=== PATIENT | male | born 1970 | race Hispanic/Latino ===

== ENCOUNTER 2016-07-07 18:51 | Emergency (ER) | payer OTHER ==
[~2016-07-07 18:51] MED LIST: FLEXERIL10 MG PO; FLONASE120 SPRAY/ NAS; HYDROCODONE/ACE1 TA1 PO; MEDROL DOSEPAK1 PAC PO; TESSALON PERLE100 MG PO; ZITHROMAX Z-PA250 M1 PO; ZOFRAN ODT4 MG PO
[2016-07-07 19:02] VITALS: BP 129/76
[2016-07-07] MEDS ORDERED: IBUPROFEN800 M1 PO (19:53)
[2016-07-07] MEDS ORDERED: CYCLOBENZAPRINE10 M1 PO (19:53)
[2016-07-07] MEDS ORDERED: MEDROL4 M2 PO (19:53)
--- NOTE | 2016-07-07 19:57 | ED NECK/BACK PAIN COMPLAINT ---
History of Present Illness General Chief Complaint: Low Back Pain/Injury Stated Complaint: LOWER BACK PAIN Source: patient Exam Limitations: no limitations Vital Signs & Intake/Output Vital Signs & Intake/Output Vital Signs Date Time Temp Pulse Resp B/P Pulse O2 O2 Flow FiO2 Ox Delivery Rate 07/07 1902 96.8 76 20 129/76 Allergies Coded Allergies: MDX - Seafood (SEAFOOD) (ANAPHYLAXIS 04/14/15) Reconcile Medications Azithromycin (Zithromax Z-Nahid) 250 MG CAP 1 DP PO AD bronchitis 2 the first day followed by 1 for days 2-5 Benzonatate (Tessalon Perle) 100 MG SGL 1 TAB PO Q8H PRN COUGH Cyclobenzaprine HCl 10 MG TABLET 1 TAB PO TID SPASMS Fluticasone Propionate (Flonase) 120 SPRAY/BOT SPR 1 SPRAY NAVDEEP BID CONGESTION DISP 1 BOTTLE Ibuprofen 800 MG TABLET 1 TAB PO TID pain Methylprednisolone. (Medrol) 4 MG TAB.DS.PK 1 DP PO AD HERNIATED DISC 6 on day 1 then reduce by one tablet daily until gone Methylprednisolone. (Medrol) 1 PAC PAC 1 PAC PO TAPER wheezing/bronchitis Triage Note: PER PT MOVING FURNITURE DAY BEFORE YESTERDAY HURT BACK. NO URINE CO NO INCONTINENCE TRIED OTC MOTRIN. LAST DOSE YESTERDAY Triage Nurses Notes Reviewed? yes Onset: Abrupt Duration: day(s): (3), constant Timing: recent history Location: lumbar spine Loss of Consciousness: no loss of consciousness HPI: 45-year-old male comes into emergency room with complaints of right lower back pain is been going on for the past 3 days. Patient was doing heavy lifting 3 days ago. Patient reports that while lifting he felt a pain in his low back. Patient has been having pain and tingling shooting down his right leg. Pain is gotten progressively worse. Denies any urinary bowel dysfunction. Nothing seems to make the symptoms better or worse. Denies any other associated symptoms. (MARNIE GRAVES) Past History Travel History Traveled to [place] past 21 day No Medical History Any Pertinent Medical History? see below for history Neurological: NONE EENT: NONE Cardiovascular: NONE Respiratory: NONE Gastrointestinal: NONE Hepatic: NONE Renal: NONE Musculoskeletal: NONE Psychiatric: NONE Endocrine: NONE Blood Disorders: NONE Cancer(s): NONE Surgical History Surgical History: non-contributory Psychosocial History What is your primary language Turkmen Tobacco Use: Never used Family History Hx Contributory? No (MARNIE GRAVES) Review of Systems Review of Systems Constitutional: Reports: no symptoms. Eyes: Reports: no symptoms. Ears, Nose, Throat, Mouth: Reports: no symptoms. Respiratory: Reports: no symptoms. Cardiovascular: Reports: no symptoms. Gastrointestinal/Abdominal: Reports: no symptoms. Musculoskeletal: Reports: see HPI. Skin: Reports: no symptoms. Neurological/Psychological: Reports: no symptoms. All Other Systems: Reviewed and Negative (MARNIE GRAVES) Physical Exam Physical Exam General Appearance: well developed/nourished, mild distress Head: atraumatic Eyes: Bilateral: normal appearance, EOMI. Ears, Nose, Throat, Mouth: hearing grossly normal, moist mucous membrane Neck: normal inspection, full range of motion Respiratory: normal breath sounds, no respiratory distress Cardiovascular: regular rate/rhythm Back: normal inspection Extremities: normal range of motion Motor: Deficit L4 Right: No Deficit L4 Left: No Deficit L5 Right: No Deficit L5 Left: No Deficit S1 Right: No Deficit S1 Right: No DTR: Patellar: 2: L4 Right, L4 Left. Achilles: 2: S1 Right, S1 Left. Neurologic/Psych: awake, alert, oriented x 3, normal mood/affect Skin: intact, normal color, warm/dry (MARNIE GRAVES) Progress Differential Diagnosis: cauda equina syn, herniated disc, myofascial strain, pyelo/UTI, sciatica, spinal cord inj, thoracic outlet syn, T/L spine injury, ureterolithiasis Plan of Care: Current Medications Sig/Juju Start time Last Medication Dose Stop Time Status Admin Ketorolac 60 MG ONCE ONE 07/08 1999 UN[facility]r Tromethamine 07/07 2000 (Toradol) Comments: 07/07/2016 10:49:43 PM Patient clinically looks well. Symptoms most consistent with herniated disc. Patient will need an outpatient MRI. No motor deficits. Patient understands and agrees the plan of care. X-ray of lumbar spine offered but I explained to the patient and will likely not show any type of disc herniation and he needs follow-up for MRI. Patient declined any narcotics. Understands and agrees a plan of care. 10- 15 minutes spent at bedside discussing plan of care. (MARNIE GRAVES) Departure Departure Disposition: HOME OR SELF CARE Condition: Stable Clinical Impression Primary Impression: Lumbar radiculopathy, acute Referrals: CYNDI MASON,FAWN (PCP/Family) MARTIR ADAMS MD Additional Instructions: Take Medrol Dosepak, Motrin, and Flexeril as prescribed. Return if any urinary bowel dysfunction. Please go over all results of today's visit with your primary care doctor. Contact your primary care doctor to let them know you were here in the emergency room. There may be nonspecific findings which may not be related to your visit today here in the emergency room but may require further evaluation and chronic monitoring by your primary care doctor. If you had a laceration today the chance of foreign body always remains. You should follow-up with your primary care doctor for recheck in 3-5 days for a wound check. If you had an x-ray done there is a chance that a fracture could have been missed on initial read and you should follow-up with your primary care doctor for repeat x-rays if symptoms persist. If your blood pressure was elevated here in the emergency room please have rechecked by her primary care doctor within the next 48 hours by your primary care doctor. If you were prescribed a narcotic here in the emergency room or any type of controlled substances you're not allowed to drive while taking this medication or operate any type of heavy machinery. Narcotics can make you feel lightheaded dizziness nausea and can cause constipation. You may need to shredder picker a stool softener. Thank you for choosing [facility] emergency room. Please return to the emergency room immediately if you have any other concerns worsening of symptoms. Departure Forms: Customer Survey General Discharge Information Prescriptions: Current Visit Scripts Ibuprofen 1 TAB PO TID #30 TAB Cyclobenzaprine HCl 1 TAB PO TID #20 TAB Methylprednisolone. (Medrol) 1 DP PO AD #1 DP 6 on day 1 then reduce by one tablet daily until gone (MARNIE GRAVES) PA/ONCOLOGY TECHNICIAN Co-Sign Statement Statement: ED Attending supervision documentation- [] I saw and evaluated the patient. I have also reviewed all the pertinent lab results and diagnostic results. I agree with the findings and the plan of care as documented in the PA's/ONCOLOGY TECHNICIAN's documentation. x I have reviewed the ED Record and agree with the PA's/ONCOLOGY TECHNICIAN's documentation. [] Additions or exceptions (if any) to the PAs/ONCOLOGY TECHNICIAN's note and plan are summarized below: [] (LULU MASON,PITER)
== END 2016-07-07 20:01 ==
LOC: ERH 18:51
DX: M54.16 Radiculopathy, lumbar region (principal)
CPT/HCPCS: 96372; J1885

== ENCOUNTER 2017-06-06 14:34 | Emergency (ER) | payer OTHER ==
[~2017-06-06] VITALS: Ht 177.8 cm; Wt 106.6 kg
[~2017-06-06 14:34] MED LIST changes: +CYCLOBENZAPRINE10 M1 PO; +IBUPROFEN800 M1 PO; +MEDROL4 M2 PO
[2017-06-06 14:49] VITALS: BP 133/86
[2017-06-07] MEDS ORDERED: BACTRIM DS TAB1 EACH PO (16:05)
[2017-06-07] MEDS ORDERED: KEFLEX500 M1 PO (16:05)
[2017-06-07] MEDS ORDERED: IBUPROFEN800 M1 PO (16:05)
== END 2017-06-06 17:48 | disposition admitted as inpatient to this hospital (09) ==
LOC: ERH 14:34
DX: T63.304A Toxic effect of unspecified spider venom, undetermined, initial encounter (principal)
CPT/HCPCS: J1885

== ENCOUNTER 2017-06-07 15:24 | Emergency (ER) | payer OTHER ==
[~2017-06-07] VITALS: Ht 177.8 cm; Wt 104.3 kg
[2017-06-07 15:29] VITALS: BP 129/78
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
[2017-06-07] MEDS ORDERED: BACTRIM DS TAB1 EACH PO (16:05)
[2017-06-07] MEDS ORDERED: IBUPROFEN800 M1 PO (16:05)
[2017-06-07] MEDS ORDERED: KEFLEX500 M1 PO (16:05)
== END 2017-06-07 17:46 ==
LOC: ERH 15:24
DX: L03.113 Cellulitis of right upper limb (principal)
CPT/HCPCS: 87184; 87070; 87147; 96374

== ENCOUNTER 2017-07-18 20:48 | Emergency (ER) | payer OTHER ==
[~2017-07-18 20:48] MED LIST changes: +BACTRIM DS TAB1 EACH PO; +KEFLEX500 M1 PO
[2017-07-18 20:59] VITALS: BP 117/73
--- NOTE | 2017-07-18 22:18 | ULTRASOUND REPORT ---
EXAMINATION: US SCROTUM CLINICAL INFORMATION: Testicular pain and swelling for one week. COMPARISON: None TECHNIQUE: A sonogram of the scrotum was performed assessing cuadra-scale appearance and color Doppler flow. Spectral analysis and Doppler interrogation was performed. FINDINGS: RIGHT: Right testicle measures 3.8 x 2.4 x 3.1 cm, volume 20.1 mL. Parenchymal echotexture is normal. No focal testicular parenchymal lesions are visualized. Normal symmetric intratesticular flow is visualized. Right epididymal head is prominent measuring 1.3 x 1.4 cm and slightly heterogeneous in echotexture. No significant increased vascularity though on Doppler. There is no hydrocele. There is a small right-sided varicocele. LEFT: Left testicle measures 4.1 x 2.2 x 3.0 cm, volume 19.2 mL. Parenchymal echotexture is normal. No focal testicular parenchymal lesions are visualized. Normal symmetric intratesticular flow is visualized. Left epididymal head is normal in size. There is a small left-sided varicocele. There is no hydrocele. There is diffuse mild scrotal wall thickening measuring 0.5 cm. IMPRESSION: 1. Normal right and left testicle with no evidence of torsion. 2. Small bilateral varicoceles. 3. There is diffuse mild thickening of the scrotal wall. This critical result was discussed with Dr. Dc on 07/18/2017, 10:10 PM and it was ascertained that the content and urgency of the report was understood at the time of direct communication.
--- NOTE | 2017-07-19 00:24 | ED GI/GU/ABDOMINAL COMPLAINT ---
History of Present Illness General Chief Complaint: Male Genitourinary Problems Stated Complaint: SWOLLEN SCROTUM AND PAIN X 1WK WORSE TODAY Source: patient, old records Exam Limitations: no limitations Vital Signs & Intake/Output Vital Signs & Intake/Output Vital Signs Date Time Temp Pulse Resp B/P B/P Pulse O2 O2 Flow FiO2 Mean Ox Delivery Rate 07/18 2058 96.1 70 20 117/73 97 Room Air ED Intake and Output 07/19 0000 07/18 1200 Intake Total Output Total Balance Patient 0 lb Weight Allergies Coded Allergies: shellfish derived (Severe, ANAPHYLAXIS 06/07/17) Uncoded Allergies: SEAFOOD (Severe, ANAPHYLAXIS 12/31/16) Reconcile Medications Azithromycin (Zithromax Z-Nahid) 250 MG CAP 1 DP PO AD bronchitis 2 the first day followed by 1 for days 2-5 Benzonatate (Tessalon Perle) 100 MG SGL 1 TAB PO Q8H PRN COUGH Cephalexin (Keflex) 500 MG CAPSULE 1 CAP PO TID cellulitis Cyclobenzaprine HCl 10 MG TABLET 1 TAB PO TID SPASMS Fluticasone Propionate (Flonase) 120 SPRAY/BOT SPR 1 SPRAY NAVDEEP BID CONGESTION DISP 1 BOTTLE Ibuprofen 800 MG TABLET 1 TAB PO TID pain Ibuprofen 800 MG TABLET 1 TAB PO TID pain Methylprednisolone. (Medrol) 4 MG TAB.DS.PK 1 DP PO AD HERNIATED DISC 6 on day 1 then reduce by one tablet daily until gone Methylprednisolone. (Medrol) 1 PAC PAC 1 PAC PO TAPER wheezing/bronchitis Sulfamethoxazole/Trimethoprim (Bactrim Ds Tablet) 800 MG-160 MG TABLET 1 TAB PO BID abscess Triage Note: PT TO ED C/O RT SIDE TESTICAL SWELLING. STATES "SOMETIMES IT'S THE LEFT SIDE, IT VARIES EVERY DAY" HAS BEEN HAPPENING FOR A WEEK. DENIES INJURY. HAS NEVER HAPPENED BEFORE. DENIES PENILE DISCHARGE. HAS URINARY URGENCY AND FREQUENCY Triage Nurses Notes Reviewed? yes Onset: Abrupt Duration: week(s): (1), constant, waxing and waning Timing: recent history Quality/Severity: aching, moderate Severity Numbers: 5 Location: scrotal Radiation: no radiation Activities at Onset: none No Modifying Factors: none Associated Symptoms: denies HPI: 46-year-old male with no medical history presents to the ER for evaluation complaining of waxing and waning intermittent scrotal swelling that line on the past week. He denies recent injury or trauma no bruising or rashes to the skin. He reports to urinary frequency and denies dysuria hematuria. No penile discharge. He has not sought care for the symptoms until this evening. No history of similar symptoms he denies noting any hernia, or bolus was abdomen. No back pain. The patient does to a lot of lifting at the gym. (Brent Rizvi) Past History Travel History Traveled to [place] past 21 day No Medical History Any Pertinent Medical History? 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 No (Brent Rizvi) Review of Systems Review of Systems Constitutional: Reports: see HPI. Comments Review of systems: See HPI, All other systems negative. Constitutional, no chills no fever HEENT: no sore throat no congestion Cardiovascular: No chest pain Skin: no rashes, no change in skin Respiratory: No dyspnea no cough no sputum GI: No nausea no vomiting, : No dysuria No hematuria, frequency Muscle skeletal: No joint pain, no back pain Neurologic: , no headache Heme/endocrine: No bruising Immunology: No lymphadenopathy (Brent Rizvi) Physical Exam Physical Exam General Appearance: well developed/nourished, no apparent distress, alert, awake Gastrointestinal: soft, non-tender, no hernia Comments: Well-developed well-nourished person in no acute distress HEENT: Normal EENT exam; PERRL, EOMI. HEAD is atraumatic. moist mucous membranes. Neck: Supple,normal range of motion Back: no CVA tenderness. Full range of motion Cardiovascular: Regular rate and rhythms no murmurs rub Respiratory: No respiratory distress. Patient speaking in full complete sentences. Breath sounds clear to auscultation bilaterally: NO W/R/R Abdomen: Soft, nontender nondistended, no appreciable organomegaly. Normal bowel sounds. No rebound/guarding, Male : testes nontender. no ecchymosis, no overlying rash, (+) right scrotal swelling no masses, normal cremaster, negphrens No lesions/discharge. Extremity: No edema, full range of motion of extremities Neuro: Alert oriented x3, motor sensory normal, There were no obvious focal neurologic abnormalities. Skin: No appreciable rash on exposed skin, skin is warm and dry. Psych: Mood and affect is normal, memory and judgment is normal. Core Measures ACS in differential dx? No Sepsis Present: No Sepsis Focused Exam Completed? No (Rosie ZAVALA,Brent) Progress Differential Diagnosis: epididymitis, testicular torsion, ureterolithiasis, urinary retention, urethritis, UTI/pyelo, varicocele Plan of Care: Orders Procedure Date/time Status Add-on Test (ER Only) 07/19 22 Active CULTURE,URINE 07/18 2106 Active URINALYSIS 07/18 2102 Complete Laboratory Tests 07/18/172106: Urine Color YEL, Urine Clarity CLEAR, Urine pH 6.0, Ur Specific [place] 1.025, Urine Protein NEG, Urine Ketones NEG, Urine Nitrite NEG, Urine Bilirubin NEG, Urine Urobilinogen 0.2, Ur Leukocyte Esterase NEG, Ur Microscopic EXAM NOT REQUIRED, Urine Hemoglobin NEG, Urine Glucose NEG Microbiology 07/18 2106 URINE ROUT: Urine Culture - RECD Labs and ultrasound were ordered from triage 0030 I discussed with the patient his ultrasound lab results he is resting in no acute distress denies pain. I discussed with him plan of care and need for close follow-up with urologist information provided for the same. Return precautions were discussed the legs he feels comfortable with plan cleared for discharge The patient is declining any pain medication at home with Diagnostic Imaging: Viewed by Me: Ultrasound. Discussed w/RAD: Ultrasound. Radiology Impression: PATIENT: BERNY SWEENEY PRESENT AGE: 46 PATIENT ACCOUNT NO: [id number] : 70 LOCATION: [facility] ORDERING PHYSICIAN: Rishi ZAVALA SERVICE DATE: 07/18/17 EXAM TYPE: US - US -TESTICULAR EXAMINATION: US SCROTUM CLINICAL INFORMATION: Testicular pain and swelling for one week. COMPARISON: None TECHNIQUE: A sonogram of the scrotum was performed assessing cuadra-scale appearance and color Doppler flow. Spectral analysis and Doppler interrogation was performed. FINDINGS: RIGHT: Right testicle measures 3.8 x 2.4 x 3.1 cm, volume 20.1 mL. Parenchymal echotexture is normal. No focal testicular parenchymal lesions are visualized. Normal symmetric intratesticular flow is visualized. Right epididymal head is prominent measuring 1.3 x 1.4 cm and slightly heterogeneous in echotexture. No significant increased vascularity though on Doppler. There is no hydrocele. There is a small right- sided varicocele. LEFT: Left testicle measures 4.1 x 2.2 x 3.0 cm, volume 19.2 mL. Parenchymal echotexture is normal. No focal testicular parenchymal lesions are visualized. Normal symmetric intratesticular flow is visualized. Left epididymal head is normal in size. There is a small left-sided varicocele. There is no hydrocele. There is diffuse mild scrotal wall thickening measuring 0.5 cm. IMPRESSION: 1. Normal right and left testicle with no evidence of torsion. 2. Small bilateral varicoceles. 3. There is diffuse mild thickening of the scrotal wall. This critical result was discussed with Dr. Dc on 07/18/2017, 10:10 PM and it was ascertained that the content and urgency of the report was understood at the time of direct communication. DICTATED BY: Gil Oden MD DATE/TIME DICTATED:07/18/172153 TELEVISION CAMERA OPERATOR:JEREMIAH DATE/TIME TRANSCRIBED:07/18/172153 CONFIDENTIAL, DO NOT COPY WITHOUT APPROPRIATE AUTHORIZATION. <Electronically signed in Other Vendor System> SIGNED BY: Gil Oden MD 07/18/172217 Initial ED EKG: none (Brent Rizvi) Departure Departure Time of Disposition: 31 Disposition: HOME OR SELF CARE Condition: Stable Clinical Impression Primary Impression: Varicocele Referrals: Herrera Young MD (PCP/Family) Galileo Posey MD Additional Instructions: Follow-up with urologist Dr. Posey tomorrow. Wear high riding briefs with support ice packs Tylenol Motrin as needed return with any concerns. Departure Forms: Customer Survey General Discharge Information (Brent Rizvi) PA/MECHANICAL SUPERVISOR Co-Sign Statement Statement: ED Attending supervision documentation- [] I saw and evaluated the patient. I have also reviewed all the pertinent lab results and diagnostic results. I agree with the findings and the plan of care as documented in the PA's/MECHANICAL SUPERVISOR's documentation. [x] I have reviewed the ED Record and agree with the PA's/MECHANICAL SUPERVISOR's documentation. [] Additions or exceptions (if any) to the PAs/MECHANICAL SUPERVISOR's note and plan are summarized below: [] (Jesu MASON,Zay Chao)
== END 2017-07-19 00:34 ==
LOC: ERH 20:48
DX: I86.1 Scrotal varices (principal); R35.0 Frequency of micturition; N48.89 Other specified disorders of penis; F17.210 Nicotine dependence, cigarettes, uncomplicated
CPT/HCPCS: 81003; 87086